=== PATIENT | male | born 1970 | race Caucasian/White ===

== ENCOUNTER 2020-07-02 18:04 | Emergency (ER) | payer SELFPAY ==
[2020-07-02] MEDS ORDERED: methylPREDNISolone Sodium Succinate 125 MG/2 ML SDV IVPUSH ONE (18:11)
--- NOTE | 2020-07-02 18:14 | EDM.PDOC ---
ED HPI GENERAL MEDICAL PROBLEM - General Chief Complaint: Bite:Animal, Insect Stated Complaint: ER Time Seen by Provider: 07/02/20 18:08 Source of Information: Reports: Patient - History of Present Illness INITIAL COMMENTS - FREE TEXT/NARRATIVE: Sheila is a 49 y/o male who is brought to the ER by EMS after he was stung multiple times by a bees. He was out in his yard mowing and he stepped over a hive of yellow jackets. He received multiple bites to his ankle and his hands along with a few other regions. He was given Benadryl 50mg IVP and Zofran 4mg IVP by paramedics prior to arrival. He denies any SOB. EMS reports he was very anxious on arrival and worked up. - Related Data Allergies Allergy/AdvReac Type Severity Reaction Status Date / Time No Known Allergies Allergy Verified 07/02/20 18:16 Home Meds: Home Meds methylPREDNISolone [Medrol] 4 mg PO ASDIRECTED #21 dospk 07/02/20 [Rx] ED ROS GENERAL - Review of Systems Review Of Systems: See Below Constitutional: Reports: No Symptoms HEENT: Reports: No Symptoms Respiratory: Reports: No Symptoms Cardiovascular: Reports: No Symptoms Endocrine: Reports: No Symptoms GI/Abdominal: Reports: Nausea : Reports: No Symptoms Musculoskeletal: Reports: No Symptoms Skin: Reports: Pruritis, Rash, Erythema Neurological: Reports: No Symptoms Psychiatric: Reports: No Symptoms Hematologic/Lymphatic: Reports: No Symptoms Immunologic: Reports: No Symptoms ED EXAM, ANIMAL BITE - Physical Exam Exam: See Below Exam Limited By: No Limitations General Appearance: Alert, WD/WN, No Apparent Distress (Adult male.) Ears: Normal Canal, Hearing Grossly Normal, Normal TMs Nose: Normal Inspection, Normal Mucosa Throat/Mouth: Normal Inspection, Normal Lips, Normal Teeth, Normal Voice, No Airway Compromise Head: Normocephalic, Sinus Tenderness Neck: Normal Inspection, Supple Respiratory/Chest: No Respiratory Distress, Lungs Clear, Chest Non-Tender Cardiovascular: Normal Peripheral Pulses, Regular Rate, Rhythm, No Murmur GI/Abdominal: Normal Bowel Sounds, Soft (Male) Exam: Deferred Rectal (Males) Exam: Deferred Back Exam: Normal Inspection Extremities: Other (Note mild edema to bilateal ankles with multiple erythematous raised bites to his legs, hands, and lower back region) Neurological: Alert, Oriented, CN II-XII Intact, Normal Cognition Psychiatric: Normal Affect, Normal Mood Skin Exam: Normal Color, Warm/Dry Lymphatic: No Adenopathy Course - Vital Signs Text/Narrative:: The patient was seen by the DIRECTOR OF MARKETING on arrival. SoluMedrol 125mg IVP. He was tired a just wanted to rest. 1819 Patient reported that he was feeling quite nauseated and sleepy. Compazine 10mg IVP and a liter of NS ordered. 1910 Patient was feeling much better and felt able to rest. He was given discharge instructions and left the ER in stable condition. Last Recorded V/S: Last Vital Signs Temp 36.1 C 07/02/20 18:04 Pulse 99 07/02/20 18:04 Resp 20 07/02/20 18:04 BP 143/89 H 07/02/20 18:04 Pulse Ox 99 07/02/20 18:04 - Orders/Labs/Meds Orders: Active Orders 24 hr Category Date Time Status Sodium Chloride 0.9% [Normal Saline] 1,000 ml Med 07/02/20 18:25 Active IV ONETIME Medication Orders Sodium Chloride (Normal Saline) 1,000 mls @ 999 mls/hr IV ONETIME ONE Stop: 07/02/20 19:25 Last Admin: 07/02/20 18:36 Dose: 999 mls/hr Documented by: GLEN Meds: Medications Generic Name Dose Route Start Last Admin Trade Name Freq PRN Reason Stop Dose Admin Sodium Chloride 1,000 mls @ 999 mls/hr 07/02/20 18:25 07/02/20 18:36 Normal Saline IV 07/02/20 19:25 999 mls/hr ONETIME ONE Administration Discontinued Medications Generic Name Dose Route Start Last Admin Trade Name Freq PRN Reason Stop Dose Admin Methylprednisolone Sodium Succinate 125 mg 07/02/20 18:11 07/02/20 18:39 Solu-Medrol IVPUSH 07/02/20 18:12 125 mg ONETIME ONE Administration Prochlorperazine Edisylate 10 mg 07/02/20 18:25 07/02/20 18:38 Compazine IV 07/02/20 18:26 10 mg ONETIME ONE Administration Departure - Departure Time of Disposition: 19:07 Disposition: Home, Self-Care 01 Condition: Good Clinical Impression: Insect bite Qualifiers: Encounter type: initial encounter Site of insect bite: lower leg Laterality: unspecified laterality Qualified Code(s): S80.869A - Insect bite (nonvenomous), unspecified lower leg, initial encounter; W57.XXXA - Bitten or stung by nonvenomous insect and other nonvenomous arthropods, initial encounter - Discharge Information *PRESCRIPTION DRUG MONITORING PROGRAM REVIEWED*: No *COPY OF PRESCRIPTION DRUG MONITORING REPORT IN PATIENT HYUN: No Prescriptions: methylPREDNISolone [Medrol] 4 mg PO ASDIRECTED #21 dospk Instructions: Bee, Wasp, or Hornet Sting, Adult Forms: ED Department Discharge Additional Instructions: -Benadryl 25mg 1-2 tablets oral every 6 hours for the next 48 hours then every 6 hours as needed (Use over the counter meds) -Prednisone 20mg oral daily #2 days (ER) Then start the following medication when you get it filled at the pharmacy. -Medrol Dosepack-Use as directed. (ER) -The medications above will help with the inflammation. -Rest -Stay well hydrated -Follow up with your PCP if you are not better or return to the ER for any concerns Sepsis Event Note (ED) - Focused Exam Vital Signs: Vital Signs Temp Pulse Resp BP Pulse Ox 07/02/20 18:04 36.1 C 99 20 143/89 H 99 - My Orders Last 24 Hours: My Active Orders 07/02/20 18:25 Sodium Chloride 0.9% [Normal Saline] 1,000 ml IV ONETIME - Assessment/Plan Last 24 Hours: My Active Orders 07/02/20 18:25 Sodium Chloride 0.9% [Normal Saline] 1,000 ml IV ONETIME
[2020-07-02] MEDS ORDERED: Prochlorperazine 10 MG/2 ML SDV IV ONE (18:25)
[2020-07-02] MEDS ORDERED: Sodium Chloride 0.9% 1,000 ML IV ONE (18:25)
[2020-07-02] MEDS ORDERED: Take Home: predniSONE 20 MG, 2 Tab Pack PO ONE (19:10)
== END 2020-07-02 19:45 | disposition home or self-care (01) ==
LOC: VM.ED 18:04
DX: S90.562A Insect bite (nonvenomous), left ankle, initial encounter (principal); S90.561A Insect bite (nonvenomous), right ankle, initial encounter; S60.562A Insect bite (nonvenomous) of left hand, initial encounter; S60.561A Insect bite (nonvenomous) of right hand, initial encounter; S30.860A Insect bite (nonvenomous) of lower back and pelvis, initial encounter; W57.XXXA Bitten or stung by nonvenomous insect and other nonvenomous arthropods, initial encounter
CPT/HCPCS: 96361; 96374; 96375; 99283-25; J0780; J2930; J7030; J7512